=== PATIENT | male | born 1950 | race Caucasian/White ===

== ENCOUNTER → 2017-06-09 | Outpatient (REF) | payer MEDICARE ==
[2017-06-09 12:34] LABS: BASO # 0.1 10^3/uL (0.0-0.2); BASO % 0.7 % (0.0-1.0); EOS # 0.1 10^3/uL (0.0-0.50); HEMATOCRIT 42.1 % (42.0-52.0); IMMATURE GRANULOCYTE % 0.2 % (0-3.0); LYMPH # 1.7 10^3/uL (1.5-4.5); LYMPH % 20.3 % (24.0-44.0); MEAN CORPUSCULAR HEMOGLOBIN 33.1 pg (27.0-33.0); MEAN CORPUSCULAR HGB CONC 35.6 g/dl (32.0-36.5); MEAN CORPUSCULAR VOLUME 92.9 fl (80.0-96.0); MONO # 0.7 10^3/uL (0.0-0.8); MONO % 8.9 % (0.0-5.0); NEUTROPHILS # 5.7 10^3/uL (1.8-7.7); NEUTROPHILS % 68.9 % (36.0-66.0); PLATELET COUNT, AUTOMATED 239 10^3/uL (150-450); RED BLOOD COUNT 4.53 10^6/uL (4.30-6.10); RED CELL DISTRIBUTION WIDTH 11.9 % (11.5-14.5); WHITE BLOOD COUNT 8.2 10^3/uL (4.0-10.0)
[2017-06-09 12:41] LABS: ALBUMIN 4.4 GM/DL (3.2-5.2); ALBUMIN/GLOBULIN RATIO 1.07 (1.00-1.93); ALKALINE PHOSPHATASE 64 U/L (45-117); ALT/SGPT 95 U/L (12-78); AMYLASE 96 U/L (25-115); ANION GAP 9 MEQ/L (8-16); AST/SGOT 108 U/L (7-37); BILIRUBIN,TOTAL 0.8 MG/DL (0.2-1.0); BLOOD UREA NITROGEN 13 MG/DL (7-18); CALCIUM LEVEL 9.7 MG/DL (8.8-10.2); CARBON DIOXIDE LEVEL 25 MEQ/L (21-32); CHLORIDE LEVEL 104 MEQ/L (98-107); CREATININE FOR GFR 0.76 MG/DL (0.70-1.30); GLOMERULAR FILTRATION RATE > 60.0 (>49); GLUCOSE, FASTING 104 MG/DL (70-100); LIPASE 157 U/L (73-393); POTASSIUM SERUM 4.9 MEQ/L (3.5-5.1); SODIUM LEVEL 138 MEQ/L (136-145); TOTAL PROTEIN 8.5 GM/DL (6.4-8.2)
== END ==
LOC: M LABDRWAD 12:07
DX: R10.9 Unspecified abdominal pain (principal)

== ENCOUNTER → 2017-12-23 | Outpatient (CLI) | payer MEDICARE | LOC: M ADAMS 15:04 | DX: M54.6 Pain in thoracic spine (principal) | CPT/HCPCS: 71101 ==

== ENCOUNTER 2019-09-21 13:35 | Emergency (ER) | payer MEDICARE, BC, OTHER ==
[~2019-09-21] VITALS: Ht 172.7 cm; Wt 61.4 kg
[2019-09-21] MEDS ORDERED: ONDANSETRON 4 MG ORAL DISINTEGRATING TAB PO ONE (15:30)
[2019-09-21] MEDS ORDERED: MORPHINE 4 MG/ML 1ML VIAL/SYRINGE (J2270) IM ONE (15:30)
[2019-09-21 16:13] LABS: BASO # 0.1 10^3/uL (0.0-0.2); BASO % 0.6 % (0.0-1.0); HEMATOCRIT 46.1 % (42.0-52.0); HEMOGLOBIN 16.2 g/dl (13.5-17.5); LYMPH # 0.7 10^3/uL (1.5-5.0); LYMPH % 5.7 % (24.0-44.0); MEAN CORPUSCULAR HEMOGLOBIN 33.1 pg (27.0-33.0); MEAN CORPUSCULAR HGB CONC 35.1 g/dl (32.0-36.5); MEAN CORPUSCULAR VOLUME 94.3 fl (80.0-96.0); MONO # 0.9 10^3/uL (0.0-0.8); MONO % 7.6 % (0.0-5.0); NEUTROPHILS # 10.6 10^3/uL (1.5-8.5); NEUTROPHILS % 85.6 % (36.0-66.0); PLATELET COUNT, AUTOMATED 230 10^3/uL (150-450); RED BLOOD COUNT 4.89 10^6/uL (4.30-6.10); WHITE BLOOD COUNT 12.4 10^3/uL (4.0-10.0)
[2019-09-21 16:29] VITALS: BP 158/78
[2019-09-21 16:33] LABS: APPEARANCE, URINE CLEAR (CLEAR); BACTERIA, URINE AUTO NEGATIVE (NEGATIVE); BILIRUBIN, URINE AUTO NEGATIVE (NEGATIVE); BLOOD, URINE BLOOD NEGATIVE (NEGATIVE); COLOR, URINE AMBER (YELLOW); GLUCOSE, URINE (UA) AUTO NEGATIVE (NEGATIVE); KETONE, URINE AUTO 1+ mg/dL (NEGATIVE); LEUKOCYTE ESTERASE, URINE AUTO NEGATIVE (NEGATIVE); MUCUS, URINE SMALL (NEGATIVE); NITRITE, URINE AUTO NEGATIVE (NEGATIVE); PROTEIN, URINE AUTO 1+ mg/dL (NEGATIVE); RBC, URINE AUTO 0 /HPF (0-3); SPECIFIC GRAVITY URINE AUTO 1.021 (1.002-1.035); SQUAMOUS EPITHELIAL CELL UR AU 0 /HPF (0-6); WBC, URINE AUTO 0 /HPF (0-3)
--- NOTE | 2019-09-22 08:59 | REP ---
HIP: REASON: Pain after fall. FINDINGS: The hip joint space is symmetric and relatively well maintained. There is no acute or destructive osseous lesion. Electronically Signed by Bulmaro Marin DO 09/22/2019 09:37 A
--- NOTE | 2019-09-22 09:00 | REP ---
REASON: Pain after fall. PRIORS: None. T12 is transitional. A mild anterior wedge compression deformity cannot be ruled out. Vertebral body height and alignment is otherwise unremarkable. There is mild posterior disc space narrowing at every level. There are mild degenerative facet joint changes seen bilaterally at all levels. There is no ash spondylolysis or spondylolisthesis. The pedicles are intact bilaterally. IMPRESSION: Transitional T12 vertebral body versus age-undetermined mild anterior wedge compression deformity. Electronically Signed by Bulmaro Marin DO 09/22/2019 09:37 A
== END 2019-09-21 16:58 | disposition left against medical advice (07) ==
LOC: M ED 13:35
DX: S79.911A Unspecified injury of right hip, initial encounter (principal); W22.8XXA Striking against or struck by other objects, initial encounter; Y92.009 Unspecified place in unspecified non-institutional (private) residence as the place of occurrence of the external cause; Y93.9 Activity, unspecified; Y99.9 Unspecified external cause status
CPT/HCPCS: 72110; 73502; 80047; 81001; 85025; 96372; 99283; J2270; Q0162

== ENCOUNTER → 2019-11-07 | Outpatient (CLI) | payer MEDICARE, BC, OTHER | LOC: M LABSMTC 11:31 | PROVIDERS: ATTEND Anesthesiology | DX: Z01.812 Encounter for preprocedural laboratory examination (principal); Z20.828 Contact with and (suspected) exposure to other viral communicable diseases | CPT/HCPCS: C9803; U0003 ==

== ENCOUNTER → 2019-11-09 | Outpatient (CLI) | payer OTHER ==
[2019-11-09 12:18] LABS: HEMATOCRIT 43.6 % (42.0-52.0); HEMOGLOBIN 15.5 g/dl (13.5-17.5); MEAN CORPUSCULAR HEMOGLOBIN 33.6 pg (27.0-33.0); MEAN CORPUSCULAR HGB CONC 35.6 g/dl (32.0-36.5); MEAN CORPUSCULAR VOLUME 94.6 fl (80.0-96.0); PLATELET COUNT, AUTOMATED 205 10^3/uL (150-450); RED BLOOD COUNT 4.61 10^6/uL (4.30-6.10); WHITE BLOOD COUNT 7.3 10^3/uL (4.0-10.0)
[2019-11-09 12:45] LABS: BLOOD UREA NITROGEN 14 MG/DL (7-18); CALCIUM LEVEL 9.5 MG/DL (8.8-10.2); CARBON DIOXIDE LEVEL 25 MEQ/L (21-32); CHLORIDE LEVEL 97 MEQ/L (98-107); CREATININE FOR GFR 0.92 MG/DL (0.70-1.30); GLOMERULAR FILTRATION RATE > 60.0 (>49); GLUCOSE, FASTING 95 MG/DL (70-100); POTASSIUM SERUM 4.2 MEQ/L (3.5-5.1); SODIUM LEVEL 130 MEQ/L (136-145)
--- NOTE | 2019-11-21 14:46 | ECGEPIP ---
[facility] Test Date: 2019-11-09 Pat Name: JOHN ROSS Department: Room: - Gender: Male Sighter: LOVE : 1950 Requested By: PIYUSH Kenny Order Number: [id number] Reading MD: Abiel Leno Measurements Intervals [place] Rate: 109 P: 79 WY: 128 QRS: 58 QRSD: 94 T: 54 QT: 314 QTc: 423 Interpretive Statements SINUS TACHYCARDIA WITH OCCASIONAL ECTOPIC PREMATURE COMPLEXES ABNORMAL RHYTHM ECG NO PRIOR TRACING
== END ==
LOC: M LAB 11:48
PROVIDERS: ATTEND Orthopaedic Surgery
DX: Z01.818 Encounter for other preprocedural examination (principal); M75.101 Unspecified rotator cuff tear or rupture of right shoulder, not specified as traumatic

== ENCOUNTER 2019-11-12 08:38 | Day surgery (SDC) | payer BC, MEDICARE, OTHER ==
[~2019-11-12] VITALS: Ht 172.7 cm; Wt 50.3 kg
[~2019-11-12 08:38] MED LIST: LIDOCAINE 2% 100MG/5ML SDV (FOR ANES.) As Ordered ONE; LR 1,000 ML IV ONE; MIDAZOLAM INJ 2MG/2ML VIAL (J2250 PER 1MG) As Ordered ONE; MIDAZOLAM INJ 2MG/2ML VIAL (J2250 PER 1MG) IV SCH; ROCURONIUM BROMIDE 50 MG/5 ML VIAL As Ordered ONE; ceFAZolin SOD 2 GM in IV 1 EA IV ONE; fentaNYL 100 MCG/2 ML INJECTION (J3010) IV SCH; fentaNYL 250 MCG/5 ML INJECTION (J3010) As Ordered ONE; propofoL 200 MG/20 ML VIAL As Ordered ONE
[2019-11-12] MEDS ORDERED: ROPIvacaine 0.5% 30ML INJECTION (J2795 PER 1MG) ONE (08:39)
[2019-11-12] MEDS ORDERED: EPINEPHrine INJ 1 MG/ML 1ML AMP ONE (08:39)
[2019-11-12] MEDS ORDERED: dexameTHASONE 10MG/1ML VIAL PRES.FREE (J1100 PER 1MG) ONE (08:39)
[2019-11-12] MEDS ORDERED: LIDOCAINE 1% MDV 20ML VIAL ONE (08:39)
[2019-11-12] MEDS ORDERED: fentaNYL 100 MCG/2 ML INJECTION (J3010) As Ordered ONE (09:24)
[2019-11-12] MEDS ORDERED: MIDAZOLAM INJ 2MG/2ML VIAL (J2250 PER 1MG) As Ordered ONE (09:24)
[2019-11-12] MEDS ORDERED: EPINEPHrine INJ 1 MG/ML 1ML AMP As Ordered ONE (09:28)
[2019-11-12] MEDS ORDERED: ePHEDrine SULFATE 25 MG/5 ML(5MG/ML) SYRINGE As Ordered ONE (10:36)
[2019-11-12] MEDS ORDERED: KETOROLAC 60MG 2ML VIAL As Ordered ONE (10:36)
[2019-11-12] MEDS ORDERED: ONDANSETRON 4MG/2ML VIAL As Ordered ONE (10:36)
[2019-11-12] MEDS ORDERED: dexameTHASONE 4 MG/ML 1ML VIAL (J1100 PER 1MG) As Ordered ONE (10:36)
[2019-11-12] MEDS ORDERED: SUGAMMADEX SODIUM 500 MG/5 ML VIAL (BRIDION) As Ordered ONE (10:36)
[2019-11-12] MEDS ORDERED: LR 1,000 ML IV SCH ×2 (13:45→14:00)
[2019-11-12] MEDS ORDERED: fentaNYL 100 MCG/2 ML INJECTION (J3010) IV PRN (13:45)
[2019-11-12] MEDS ORDERED: METOCLOPRAMIDE INJ 10MG/2ML VIAL (J2765 PER 1) IV PRN (13:45)
[2019-11-12] MEDS ORDERED: MEPERIDINE INJ 25 MG/ML VIAL (J2175) IV PRN (13:45)
[2019-11-12] MEDS ORDERED: ONDANSETRON 4MG/2ML VIAL IV PRN (13:45)
[2019-11-12] MEDS ORDERED: oxyCODONE 5MG TAB PO PRN (13:45)
[2019-11-12 15:20] VITALS: BP 170/88
--- NOTE | 2019-12-02 09:22 | RO ---
DATE OF OPERATION: 11/12/2019 PREOPERATIVE DIAGNOSES: * Right shoulder rotator cuff re-tear. * Right shoulder painful biceps tenodesis. * Right shoulder arthritis. * Right shoulder labral tear. * Right shoulder impingement. POSTOPERATIVE DIAGNOSES: * Right shoulder rotator cuff re-tear. * Right shoulder painful biceps tenodesis. * Right shoulder arthritis. * Right shoulder labral tear. * Right shoulder impingement. PROCEDURES: * Right shoulder arthroscopic revision rotator cuff repair including subscapularis. * Right shoulder open proximal biceps tenolysis. * Right shoulder arthroscopic chondroplasty, labral debridement and synovectomy. * Right shoulder arthroscopic subacromial decompression and lysis of adhesions. SURGEON: Brendan Lyons M.D. [employer]: [employer] ANESTHESIA: General with preoperative nerve block. INTRAVENOUS FLUIDS: Lactated Ringer's. ESTIMATED BLOOD LOSS: 5 mL. IMPLANTS: Arthrex 4.75 mm Peak SwiveLock anchor x2 and 5.5 mm Peak SwiveLock anchor x3. CLOSURE: Nylon and Monocryl. DESCRIPTION OF PROCEDURE: Patient identified in the preoperative holding area. The right arm was marked. He had an interscalene nerve block by anesthesia. He was brought to the operating room and placed supine on a well-padded OR table with a beanbag. After induction of general anesthesia, I performed an examination which revealed 170 degrees of forward flexion, 80 of external rotation, no increased anterior or posterior translation. He was placed into the left side down lateral decubitus position with an axillary roll and all bony prominences were well padded. The right arm was placed into the Arthrex STaR Sleeve lateral decubitus traction galvan with 10 pounds of traction. The right shoulder was then prepped and draped in normal sterile fashion. He received appropriate IV antibiotics within one hour of incision. Gabriela Hampton was present for the entire procedure and participated in all essential portions of the procedure. This included holding retractors during the biceps tenolysis, holding the arthroscope throughout the rotator cuff repair, as well as assisting with anchor placement, suture retrieval, suture passage and rotating the arm as well as performed the wound closure, applied the dressing and sling. A timeout was performed per hospital protocol. I then proceeded with an open tenolysis. The prior biceps tenodesis incision was opened with a 10 blade and extended distally slightly. Dissection through subcutaneous tissues with Metzenbaum scissors. The prior plane of surgery was identified. The bicipital groove was palpated. Long head of the biceps tendon was sitting within the groove. The muscle-tendon junction was confirmed distally. Proximally, I was able to palpate the very tip of the metal suture anchor. Careful inspection of the surgical field confirmed that this was in fact the long head of the biceps and not the musculocutaneous nerve. I then used Metzenbaum scissors to release the long head of the biceps tendon out of the groove. Of note, none of the prior suture was seen from the suture anchor. I then used the Metzenbaum scissors and blunt finger dissection to perform several cautious releases in the area. I then pushed the tendon distally. The incision was then irrigated and then closed with 2-0 Vicryl and a running Monocryl and Steri-Strips placed at the end of the case. A posterior viewing portal was made with an 11 blade, the arthroscope placed into the joint. A diagnostic arthroscopy was carried out revealing grade 2 chondromalacia of the glenoid, grade 1 in the humeral head. There was a macerated split tear of the subscapularis. There was a full-thickness re-tear of the supraspinatus. Suture from the original rotator cuff repair many years ago was identified. There was tearing of the anterior, superior and posterior labrum. An anterior working portal was established through the rotator interval and a purple Arthrex cannula placed. The shaver was then used to perform a chondroplasty and a labral debridement. I also performed a synovectomy. The open suture cutter was then used to cut and release prior FiberWire suture. I then went into the subacromial space and through a lateral working portal, I was able to use the KingFisher and I was able to remove all visible suture and this confirmed a crescent-shaped tear. The arthroscope was placed back into the joint and an accessory superolateral portal was established. The shaver was used to debride poor quality subscapularis tissue as well as some adjacent scar tissue. Shaver was also used to debride soft tissue off the lesser tuberosity and then on the chino setting to create a bleeding surface. Scorpion was used to pass FiberTape; one pass through the upper third and then a second pass through the middle third as this was a [id number] split type of tear. I passed the suture in a way that it locked on itself for improved pullout strength. The sutures were loaded through a 4.75 mm SwiveLock anchor, a Peak anchor and then the awl used to create a socket in the left tuberosity. The anchor docked, sutures tensioned and anchor inserted by hand with excellent fixation and this nicely restored the subscapularis. The arthroscope was placed back in the subacromial space. The Ring curette was used to clear all soft tissue off the tuberosity. The PowerPick was then used to perform a microfracture of the greater tuberosity to improve biologic healing. Again, this was a full-thickness re-tear of the supraspinatus and a good portion of the infraspinatus. The FiberWire suture was passed through the rotator cuff as a traction stitch and then releases on the superior and inferior aspect of the cuff were performed with cautery and a stitching stick. There was excellent lateral excursion of the rotator cuff now. No margin convergent stitches indicated at this point. I percutaneously placed a 4.75 mm Peak SwiveLock anchor just lateral to the initial anteromedial anchor. This had good fixation. The first set of eyelet stitches were passed through the far anterior portion of the tear in a horizontal mattress fashion. The tape stitches were then passed next and then the second set of eyelet stitches centrally, and that was from an anterior to posterior direction. The far anterior eyelet stitches were then tied with a knot pusher using alternating half-inch technique. This nicely set the leading edge of the supraspinatus. I then placed a 5.5 mm Peak SwiveLock anchor. This one just anterior and lateral to the initial posteromedial anchor. This had excellent fixation. I passed the tape sutures through the posterior central aspect of the tear in a horizontal mattress fashion and then I passed one set of eyelet stitches, through the very far posterior portion of the tear. I then tied with the knot pusher the far posterior eyelet stitches to set the infraspinatus tension. I then tied the remaining eyelet sutures. This was at the mid point of the tear. So now, there was dramatically improved coverage already of the tuberosity. We then proceeded with lateral row fixation. The appropriate medial sutures were brought out through a 5.5 mm Peak SwiveLock anchor, awl used to create a socket in the far anterolateral portion of the tuberosity. Frankford dock sutures tensioned. Frankford inserted by hand with excellent fixation. These steps were repeated with the remaining sutures through a second 5.5 lateral row SwiveLock anchor. This was posterolateral and that anchor had fantastic fixation. There was now complete coverage of the tuberosity. The shoulder was gently rotated. There was no lift off or buckling. The shoulder was irrigated and drained. Portals were closed with nylon sutures. Bulky sterile dressing applied. He was then placed into the ARC 2.0 sling. He was extubated and transferred to the PACU in stable condition. DE
== END 2019-11-12 16:55 | disposition home or self-care (01) ==
LOC: M SDC 08:38
PROVIDERS: ATTEND Orthopaedic Surgery
DX: M75.111 Incomplete rotator cuff tear or rupture of right shoulder, not specified as traumatic (principal); M13.812 Other specified arthritis, left shoulder; M75.41 Impingement syndrome of right shoulder; I10 Essential (primary) hypertension; F10.10 Alcohol abuse, uncomplicated; F12.10 Cannabis abuse, uncomplicated
CPT/HCPCS: 23929; 29823; 29826; 29827; 64415; C1713; J0171; J0690; J1100; J1885; J2250; J2405; J2795; J3010

== ENCOUNTER → 2020-03-26 | Outpatient (CLI) | payer MEDICARE, BC, OTHER ==
--- NOTE | 2020-03-26 12:54 | REP ---
INDICATION: MIRIAM LEG PAIN W/ PVD COMPARISON: None. TECHNIQUE: Real time polanco scale and Duplex Doppler evaluation of the bilateral lower extremity arterial vasculature using linear high frequency transducer. FINDINGS: Polanco scale and duplex doppler images demonstrate severe calcific plaque bilaterally. The right lower extremity demonstrates diffuse triphasic and biphasic waveforms without compelling duplex Doppler sonographic evidence of significant stenosis. Biphasic and triphasic waveforms are seen in the left common femoral and proximal superficial femoral arteries. There is occlusion of the mid left superficial femoral artery with reconstitution of the distal aspect of the SFA. Monophasic waveforms are seen from that level, distally. The distal left posterior tibial artery is occluded. Peak systolic velocities (cm/sec) Common femoral artery: Right 148; Left 99 Profunda femoris: Right 115; Left 104 SFA (proximal): Right 157; Left 41 SFA (mid): Right 119; Left occluded SFA (distal): Right 105; Left 48 Popliteal artery: Right 56; Left 45 LINDA (prox.): Right 33; Left 22 Tibioperoneal trunk: Right 67; Left 17 DISTRIBUTOR OPERATOR (prox.): Right 31; Left 10 DISTRIBUTOR OPERATOR (distal): Right 55; Left occluded LINDA (distal): Right 59; Left 15 IMPRESSION: Severe calcific plaque bilaterally. Occlusion mid left SFA with reconstitution of the distal SFA. Occlusion distal left posterior tibial artery. No definite stenosis right lower extremity arterial system. <Electronically signed by Gómez Polanco > 03/26/20 [id number]
== END ==
LOC: M RAD 10:55
PROVIDERS: ATTEND Podiatrist Foot & Ankle Surgery
DX: M79.604 Pain in right leg (principal); M79.605 Pain in left leg; I70.213 Atherosclerosis of native arteries of extremities with intermittent claudication, bilateral legs

== ENCOUNTER → 2020-03-31 | Outpatient (POV) | payer MEDICARE, BC, OTHER ==
--- NOTE | 2020-04-01 15:50 | IRCOV ---
[facility] IR Consult Office Visit IR Consult Office Visit DATE: Mar 31, 2020 Patient agreed to this telephone consultation. I spent 30 minutes reviewing patient's records, imaging and talking to the patient. REASON FOR CONSULTATION/CHIEF COMPLAINT: PAD. HISTORY OF PRESENT ILLNESS: 70-year-old male who does not follow with any PCP, complains of a left heel spur which occurred a year ago. He states for the past year he's had pain in the left heel and ankle and has walked with limp. Recently he says his heel spurs improved and is walking better without limping. He gets pain around the edges of the big toe nail and thinks he has a fungal infection. He is following with podiatry. He states he is ambulatory and mobile and denies intermittent claudication or rest pain. He denies prior cold leg, discoloration of the toes, gangrene or amputations. He denies color change in extremities with elevation or dependence. He states he gets mild limb swelling which improves with elevation. He denies chest pain, shortness of breath, paroxysmal nocturnal dyspnea or orthopnea. He quit smoking 20 years ago. He states his blood pressure runs in the 200s but he has not seen a PCP. He scheduled to follow-up with the resident clinic. He does not take any blood pressure medication, statin, FAIZAN inhibitor, aspirin or Plavix. He denies prior heart attack or stroke. ALLERGIES: Please see below. HOME MEDICATIONS: Please see below. PAST MEDICAL HISTORY: Never seen PCP PAST SURGICAL HISTORY: Noncontributory FAMILY HISTORY: Noncontributory. SOCIAL HISTORY: Ex-smoker, quit 20 years ago. Denies alcohol or drugs. REVIEW OF SYSTEMS: Otherwise negative. PHYSICAL EXAMINATION: No video on patient side. LABORATORY DATA: None recent Imaging: I personally reviewed the lower extremity arterial ultrasound performed March 2020. There is atherosclerotic disease in the left common femoral artery and superficial femoral artery. Biphasic waveforms in the proximal superficial femoral artery, difficult to detect mid superficial femoral artery. Monophasic waveform in the distal SFA and below-knee arterial disease with poor waveform. ASSESSMENT/PLAN: 70-year-old male who does not currently follow with PCP, referred for left lower extremity evaluation. Patient has many risk factors including his hypertension for both coronary atherosclerotic disease and peripheral vascular disease. I strongly recommend he pursue treatment for his hypertension and get checked for high cholesterol and diabetes. After ap propriate evaluation of his coronary risk factors, it may be reasonable to start him on aspirin, Plavix, antihypertensives including Faizan inhibitors and statins, which may increase overall survival in patients with PAD. At that present time, he is asymptomatic in terms of his left lower extremity atherosclerotic disease as he has no intermittent claudication or rest pain. I will follow him up in 6 months, after his lifestyle and risk factor modifications. Thank you for this referral. Cc Dr. Bravo Cc Patient's new PCP Allergies Coded Allergies: No Known Allergies (Unverified , 09/21/19) TOBY CHRISTOPHER MD Apr 01, 2020 15:50
== END ==
LOC: M TMIRPOV 10:18
PROVIDERS: ATTEND Radiology Diagnostic Radiology
DX: I73.9 Peripheral vascular disease, unspecified (principal); I10 Essential (primary) hypertension; Z87.891 Personal history of nicotine dependence

== ENCOUNTER → 2020-06-02 | Outpatient (REF) | payer MEDICARE ==
[2020-06-02 12:14] LABS: BASO # 0.1 10^3/uL (0.0-0.2); BASO % 1.2 % (0.0-1.0); EOS # 0.1 10^3/uL (0.0-0.5); EOS % 0.9 % (0.0-3.0); HEMATOCRIT 44.5 % (42.0-52.0); HEMOGLOBIN 15.3 g/dl (13.5-17.5); LYMPH % 29.2 % (24.0-44.0); MEAN CORPUSCULAR HEMOGLOBIN 33.4 pg (27.0-33.0); MEAN CORPUSCULAR HGB CONC 34.4 g/dl (32.0-36.5); MEAN CORPUSCULAR VOLUME 97.2 fl (80.0-96.0); MONO # 0.8 10^3/uL (0.0-0.8); MONO % 12.2 % (2.0-8.0); NEUTROPHILS # 3.8 10^3/uL (1.5-8.5); NEUTROPHILS % 56.2 % (36.0-66.0); PLATELET COUNT, AUTOMATED 251 10^3/uL (150-450); RED BLOOD COUNT 4.58 10^6/uL (4.30-6.10); WHITE BLOOD COUNT 6.8 10^3/uL (4.0-10.0)
[2020-06-02 12:45] LABS: ALBUMIN 4.1 GM/DL (3.2-5.2); ALT/SGPT 77 U/L (12-78); BILIRUBIN,TOTAL 0.9 MG/DL (0.2-1.0); BLOOD UREA NITROGEN 12 MG/DL (7-18); CALCIUM LEVEL 9.7 MG/DL (8.8-10.2); CARBON DIOXIDE LEVEL 28 MEQ/L (21-32); CHLORIDE LEVEL 102 MEQ/L (98-107); CHOLESTEROL LEVEL 206 MG/DL (<200); CREATININE FOR GFR 0.82 MG/DL (0.70-1.30); GLOMERULAR FILTRATION RATE > 60.0 (>42); GLUCOSE, FASTING 93 MG/DL (70-100); HDL CHOLESTEROL 88 MG/DL (>40); LDL CHOLESTEROL 104 MG/DL (<100); NON-HDL-C 118 MG/DL; POTASSIUM SERUM 4.3 MEQ/L (3.5-5.1); SODIUM LEVEL 135 MEQ/L (136-145); TOTAL PROTEIN 8.7 GM/DL (6.4-8.2); TRIGLYCERIDES LEVEL 71 MG/DL (<150)
[2020-06-02 13:04] LABS: HEMOGLOBIN A1c 5.2 %
== END ==
LOC: M SFHCPLAZ 10:43
PROVIDERS: ATTEND Family Medicine
DX: I73.9 Peripheral vascular disease, unspecified (principal); Z79.899 Other long term (current) drug therapy
CPT/HCPCS: 36415; 80053; 80061; 83036; 85025; G0463